=== PATIENT | male | born 1950 | race Two or more races ===

== ENCOUNTER 2018-10-14 08:53 | Inpatient (IN) | payer MEDICARE, MEDICAID ==
[~2018-10-14] VITALS: Ht 182.9 cm; Wt 88.5 kg
--- NOTE | 2018-10-14 09:03 | NUR ---
SUDDEN ONSET RUQ ABDOMINAL PAIN W/ N/V X 0400. TOOK NORCO10 NO RELIEF. TO ER BED 9, HOOKED TO MONITOR, CHANGED TO GOWN, PROVIDED W WARM BLANKET, AWAITING MD MENEZES
--- NOTE | 2018-10-14 09:12 | NUR ---
DR STEVENS AT BEDSIDE
[2018-10-14] MEDS ORDERED: ONDANSETRON HCL/PF 4 MG/2 ML VIAL ONE (09:22)
[2018-10-14] MEDS ORDERED: MORPHINE SULFATE INJ 4 MG/ML DISP.SYRIN ONE ×2 (09:23→10:11)
[2018-10-14 09:24] LABS: BASOPHILS % (AUTO) 0.2 % (0.0-2.0); EOSINOPHILS % (AUTO) 0.4 % (0.0-6.0); HEMATOCRIT 47 % (39-51); HEMOGLOBIN 15.7 g/dL (13.5-17.5); LYMPHOCYTES # (AUTO) 1.4 /CMM (0.8-4.8); LYMPHOCYTES % (AUTO) 14.5 % (20.0-44.0); MEAN CORPUSCULAR HGB CONC 34 g/dl (31.0-36.0); MEAN CORPUSCULAR VOLUME 88 fL (80-96); MONOCYTES # (AUTO) 0.4 /CMM (0.1-1.30); MONOCYTES % (AUTO) 3.9 % (2.0-12.0); NEUTROPHILS # (AUTO) 8.1 /CMM (1.8-8.9); PLATELET COUNT (AUTO) 157 /CMM (150-450); RED BLOOD CELL COUNT(AUTO) 5.35 MIL/uL (4.5-6.0)
[2018-10-14] MEDS ORDERED: MORPHINE SULFATE INJ 2 MG/ML DISP.SYRIN IV ONE ×2 (09:30→10:00)
[2018-10-14] MEDS ORDERED: IV NS 0.9% 1,000 ML BAG IV ONE (09:30)
[2018-10-14] MEDS ORDERED: ONDANSETRON HCL/PF 4 MG/2 ML VIAL IVP ONE (09:30)
--- NOTE | 2018-10-14 09:33 | NUR ---
US TECH AT BEDSIDE.
[2018-10-14 09:40] LABS: CALCIUM, SERUM 9.7 mg/dL (8.5-10.1); CREATININE 1.1 mg/dL (0.6-1.3); POTASSIUM 3.9 mmol/L (3.5-5.1)
[2018-10-14 09:46] LABS: ALBUMIN 3.9 g/dL (3.4-5.0); BILIRUBIN,DIRECT 0.1 mg/dL (0.0-0.2); BILIRUBIN,TOTAL 0.3 mg/dL (0.2-1.0); TOTAL PROTEIN, SERUM 7.6 g/dL (6.4-8.2)
--- NOTE | 2018-10-14 09:56 | NUR ---
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
--- NOTE | 2018-10-14 10:09 | NUR ---
REPORT GIVEN TO LEFTY BECK OF MED-SURG UNIT 101 DR OSORIO CHOLELITHIASIS CHOLECYSTITIS
[2018-10-14 10:26] LABS: APPEARANCE,URINE Clear (CLEAR); BILIRUBIN,URINE Negative (NEGATIVE); BLOOD, URINE Large Ery/uL (NEGATIVE); COLOR,URINE Yellow (YELLOW); KETONES,URINE 15 (NEGATIVE); LEUKOCYTE ESTERASE ,URINE Trace (NEGATIVE); NITRITE, URINE Negative (NEGATIVE); PROTEIN,URINE Trace mg/dl (NEGATIVE); UGLUCOSE Negative (NEGATIVE); UROBILINOGEN,URINE 0.2 EU/dL (0.2)
[2018-10-14] MEDS ORDERED: TAMS-12 PO (10:33)
[2018-10-14 10:37] LABS: BACTERIA,URINE Few /HPF (None Seen); MUCUS,URINE Moderate /LPF (None Seen); SQUAMOUS EPITHELIAL CELL,UR Few /HPF (None Seen)
[2018-10-14 10:38] LABS: RBC,URINE 21-50 /HPF (0-2)
--- NOTE | 2018-10-14 10:42 | NUR ---
DR HEALY CALLED AND ACCEPTED CONSULT, PANEL ON-CALL PAGED
[2018-10-14] MEDS ORDERED: HYDROMORPHONE 1 MG/1 ML DISP.SYRIN IV PRN (11:00)
[2018-10-14] MEDS ORDERED: HYDROMORPHONE 1 MG/1 ML DISP.SYRIN ONE (11:05)
--- NOTE | 2018-10-14 11:15 | NUR ---
RN MS ADMITTING NOTES RECEIVED PATIENT FROM ED VIA GURNEY ABLE TO AMBULATE TO BED. NO SIGNS OR SYMPTOMS OF RESPIRATORY DISTRESS SATURATING 94% ON ROOM AIR . ACUTE PAIN TO RUQ D/T CHOLELITHIASIS.A/O X4 BERMUDIAN SPEAKING SON AT BEDSIDE TO HELP WITH TRANSLATION. IV TO LAC # 18 GAUGE SKIN INTACT NO PHOTOS TAKEN. VITALS RECORDED SEE FLOW SHEET. ORDERS FOR SURGERY PER DR CADENA ALL PREP AND CONSENTS SIGNED. SAFETY PRECAUTIONS IN PLACE BED IN LOW POSITION. ORIENTED TO ROOM AND CALL SYSTEM. WILL MONITOR ACCORDINGLY
--- NOTE | 2018-10-14 11:15 | NUR ---
PT WHEELED OUT VIA [employer] BY [employer] TO MED-SURG UNIT. SON AT BEDSIDE
[2018-10-14] MEDS ORDERED: IV 1/2NS 1000 ML 1,000 ML IV PRN (12:20)
[2018-10-14] MEDS ORDERED: HYDROCODONE/APAP 5/325MG 1 EACH TABLET PO PRN (12:30)
[2018-10-14] MEDS ORDERED: ONDANSETRON HCL/PF 4 MG/2 ML VIAL IVP PRN (12:30)
[2018-10-14] MEDS ORDERED: HYDROMORPHONE INJ 2 MG/ML DISP.SYRIN IV PRN (12:30)
[2018-10-14] MEDS ORDERED: ACETAMINOPHEN 325 MG TABLET PO PRN (12:30)
[2018-10-14] MEDS ORDERED: MAGNESIUM HYDROXIDE 30 ML UDC PO PRN (12:30)
[2018-10-14] MEDS ORDERED: ZOLPIDEM TARTRATE 5 MG TABLET PO PRN (12:30)
[2018-10-14] MEDS ORDERED: MAG HYDROX/AL HYDROX/SIMETH 30 ML UDC PO PRN (12:30)
[2018-10-14] MEDS ORDERED: Z GUARD REMEDY 2 OZ OINT TP PRN (12:30)
[2018-10-14] MEDS: IV 1/2NS 1000 ML 1,000 ML IV PRN ×2 (13:02→18:42)
[2018-10-14 13:58] VITALS: BP 162/75
[2018-10-14] MEDS ORDERED: ZOSYN IVPB 3.375 G in IV D5W 50ml IV ONE (14:00)
--- NOTE | 2018-10-14 14:28 | NUR ---
SURGERY CALLED WILL STUNNER PATIENT SHORTLY
--- NOTE | 2018-10-14 14:30 | NUR ---
PT LEFT FOR SURGERY
[2018-10-14] MEDS ORDERED: LIDOCAINE HCL/PF 1% 30 ML SDV ONE (14:49)
[2018-10-14] MEDS ORDERED: BUPIVACAINE MPF 0.5% W/EPI INJ 30 ML VIAL ONE (14:50)
[2018-10-14] MEDS ORDERED: ANESTHESIA TRAY IN PYXIS 1 EA TRAY MC ONE (15:16)
[2018-10-14] MEDS ORDERED: BUPIVACAINE 0.5 % PF 150 MG/30 ML VIAL ONE (16:02)
[2018-10-14] MEDS ORDERED: MORPHINE SULFATE INJ 2 MG/ML DISP.SYRIN IV PRN (17:30)
--- NOTE | 2018-10-14 17:49 | NUR ---
PT RETURNED FORM SURGERY AWAKE AND ALERT NO RESPIRATORY DISTRESS ON 4 LTRS NASAL CANNULA. MILD PAIN NOTED NO PAIN MED REQUESTED. 3 X DRESSINGS NOTED ON ABDOMEN. BETTIE DRAIN DRAINING SERICIGENOUS PINK DRAINAGE FAMILY AT BEDSIDE.
[2018-10-14 18:00] VITALS: BP 145/59
--- NOTE | 2018-10-14 18:50 | NUR ---
RN MS NOTES PATIENT A/O X4 NO SIGN OR SYMPTOM OF RESPIRATORY DISTRESS ON 4 LTRS NASAL CANNULA. NO C/O PAIN. FAMILY AT BEDSIDE. DRESSINGS CLEAN AND DRY UPPER ABDOMEN DRESSING SOME BLOOD NOTED ON ADMISSION FROM SURGERY.BETTIE DRAIN ON R SIDE DRAINING MODERATE AMOUNT OF PINK FLUID. ORDERS FOR REGULAR DIET AND TO AMBULATE TOLERATED.LAC # 18 GAUGE RUNNING 1/2 NS @ 75 ML/HR. RESTING COMFORTABLE. SAFETY PRECAUTIONS IN PLCAE BED IN LOW POSITION CALL LIGHT WITHIN REACH
--- NOTE | 2018-10-14 18:58 | NUR ---
REPORT ENDORSED TO NOC
--- NOTE | 2018-10-14 20:00 | NUR ---
RN INITIAL NOTES RECEIVED PT IN BED, PATIENT A/O X4, NO SIGN OR SYMPTOM OF RESPIRATORY DISTRESS ON 4 LTRS NASAL CANNULA. NO C/O PAIN. FAMILY AT BEDSIDE. DRESSINGS ABDOMEN X3.BETTIE DRAIN ON R SIDE DRAINING MODERATE AMOUNT OF PINK FLUID. ORDERS FOR REGULAR DIET AND TO AMBULATE TOLERATED.LAC # 18 GAUGE RUNNING 1/2 NS @ 75 ML/HR. RESTING COMFORTABLE. SAFETY PRECAUTIONS IN PLACE, BED IN LOW POSITION CALL LIGHT WITHIN REACH
[2018-10-14] MEDS: PIPERACILLIN /TAZOBACTAM 3.375 G in IV D5W 100 ML IV SCH (21:32)
[2018-10-15 04:00] VITALS: BP 118/68
[2018-10-15] MEDS: PIPERACILLIN /TAZOBACTAM 3.375 G in IV D5W 100 ML IV SCH (05:44)
--- NOTE | 2018-10-15 06:22 | NUR ---
RN CLOSING NOTES PT REMAINED IN STABLE CONDITION OVER NIGHT. ALL NEEDS ANTICIPATED AND MET. WILL ENDORSE TO AM RN.
[2018-10-15] MEDS ORDERED: PANTOPRAZOLE 40 MG TABLET.DR PO SCH (07:30)
--- NOTE | 2018-10-15 07:30 | NUR ---
RN NOTES RECEIVED PATIENT ASLEEP EASILY AWAKEN BY VERBAL STIMULI, A/A/O X4, ABLE TO MAKE NEEDS KNOWN. ON ROOM AIR, BREATHING EVEN AND UNLABORED. NO SOB. PATIENT LOOKS CALM AND COMFORTABLE ON BED AT THIS TIME. NO COMPLAINTS OF PAIN. IV LINE ACCESS NOTED ON THE LAC G [address], PATENT ON FLUSHING, DRESSING C/D/I. WITH ONGOING IVF OF NS RUNNING AT 25CC/HR. PATIENT ENCOURAGE TO VERBALIZE FEELINGS AND CONCERNS. SAFETY MEASURES OBSERVED AND MAINTAINED. CALL LIGHT WITHIN REACH, WILL CONTINUE TO MONITOR PATIENT
[2018-10-15 07:35] LABS: BASOPHILS % (AUTO) 0.1 % (0.0-2.0); EOSINOPHILS % (AUTO) 0.1 % (0.0-6.0); HEMATOCRIT 43 % (39-51); HEMOGLOBIN 14.1 g/dL (13.5-17.5); LYMPHOCYTES # (AUTO) 1.5 /CMM (0.8-4.8); LYMPHOCYTES % (AUTO) 12.5 % (20.0-44.0); MEAN CORPUSCULAR HGB CONC 33 g/dl (31.0-36.0); MEAN CORPUSCULAR VOLUME 87 fL (80-96); MONOCYTES # (AUTO) 0.7 /CMM (0.1-1.30); NEUTROPHILS # (AUTO) 9.5 /CMM (1.8-8.9); NEUTROPHILS % (AUTO) 81.3 % (43.0-81.0); PLATELET COUNT (AUTO) 151 /CMM (150-450); RED BLOOD CELL COUNT(AUTO) 4.94 MIL/uL (4.5-6.0); WHITE BLOOD COUNT (AUTO) 11.7 K/uL (4.3-11.0)
[2018-10-15 08:00] VITALS: BP 128/61
[2018-10-15 08:10] LABS: CALCIUM, SERUM 8.6 mg/dL (8.5-10.1); CREATININE 1.2 mg/dL (0.6-1.3); MAGNESIUM 1.8 mg/dL (1.8-2.4); PHOSPHORUS 3.2 mg/dL (2.5-4.9)
[2018-10-15] MEDS ORDERED: TAMSULOSIN 0.4 MG CAP.SR.24H PO SCH (09:00)
[2018-10-15] MEDS ORDERED: ASPIRIN 81 MG TAB.CHEW PO SCH (09:00)
[2018-10-15] MEDS ORDERED: ASPI-1169 PO (10:33)
[2018-10-15] MEDS ORDERED: ATOR20TA PO (10:33)
--- NOTE | 2018-10-15 11:10 | NUR ---
RN NOTES PATIENT DISCHARGE. SON MADE AVAILABLE AT BEDSIDE SO PATIENT CAN EXPRESS QUESTION AND CONCERNS THAT CAN BE ADDRESSED APPROPRIATELY. ALL DISCHARGE AND MEDICATION INSTRUCTION GIVEN TO SON. BELONGINGS ACCOUNTED FOR AND RETURNED BACK TO THE PATIENT, CLOTHES WORN BY PATIENT. PRESCRIPTION AAND DISCHARGE PACKET AND MEDICATIONS PRESCRIPTIONS HANDED TO SON, REITERATED FOLLOW UP SCHEDULE WITH DR. EMERY HEALY IN HIS OFFICE IN ONE WEEK. IV ACCESS AND ID BANDS REMOVE. PATIENT OUT OF THE UNIT AMBULATORY ACCOMPANIED BY THE SON
== END 2018-10-15 14:54 | disposition home or self-care (01) | DRG 419 ==
LOC: ER 08:59 → MEDSG1 10:19
PROVIDERS: ADMIT Student in an Organized Health Care Education/Training Program; ATTEND Student in an Organized Health Care Education/Training Program
PROC: 0FT44ZZ Resection of Gallbladder, Percutaneous Endoscopic Approach (ICD-10-PCS; principal; 2018-10-14)
DX: K80.00 Calculus of gallbladder with acute cholecystitis without obstruction (principal); E66.9 Obesity, unspecified; F17.210 Nicotine dependence, cigarettes, uncomplicated; I10 Essential (primary) hypertension; I25.10 Atherosclerotic heart disease of native coronary artery without angina pectoris; Z95.1 Presence of aortocoronary bypass graft; N40.0 Benign prostatic hyperplasia without lower urinary tract symptoms; Z68.26 Body mass index [BMI] 26.0-26.9, adult; K76.0 Fatty (change of) liver, not elsewhere classified; R09.89 Other specified symptoms and signs involving the circulatory and respiratory systems; I71.2 Thoracic aortic aneurysm, without rupture
CPT/HCPCS: 36415; 71045-TC; 76705-TC; 80048-TC; 80061-TC; 80076-TC; 81000-TC; 83690-TC; 83735-TC; 84100-TC; 85025-TC; 85730-TC; 86850-TC; 87070-TC; 87075-TC; 87081-TC; 87086-TC; 88304-TC; 93307-TC; G0378; J1100; J1170; J2270; J2405; J2543; J2710; J3490; J7030; J7060